=== PATIENT | female | born 1960 | race Caucasian/White ===

== ENCOUNTER 2023-04-14 07:07 | Outpatient (RCR) | payer OTHER, SELFPAY | END 2023-04-14 23:59 | disposition home or self-care (01) | LOC: RPT 07:07 | PROVIDERS: ATTENDING PHYSICIAN Physician Assistant Medical | DX: N39.41 Urge incontinence (principal); Z73.6 Limitation of activities due to disability; M62.81 Muscle weakness (generalized); Z98.890 Other specified postprocedural states | CPT/HCPCS: 97140; 97163; 97530 ==

== ENCOUNTER → 2023-04-15 13:00 | Outpatient (REF) | payer OTHER, SELFPAY | LOC: PAVMRI 13:00 | PROVIDERS: ATTENDING PHYSICIAN Nurse Practitioner Family; FAMILY PHYSICIAN Physician Assistant Medical; REFERRING PHYSICIAN Psychiatry & Neurology Neurology | DX: R90.82 White matter disease, unspecified (principal) | CPT/HCPCS: 72156; 72157; A9575 ==

== ENCOUNTER 2023-05-12 06:46 | Outpatient (RCR) | payer OTHER, SELFPAY | END 2023-05-12 23:59 | disposition home or self-care (01) | LOC: RPT 06:46 | PROVIDERS: ATTENDING PHYSICIAN Physician Assistant Medical | DX: N39.41 Urge incontinence (principal); Z73.6 Limitation of activities due to disability | CPT/HCPCS: 97014; 97110; 97112; 97140; 97530 ==

== ENCOUNTER 2023-06-11 06:43 | Outpatient (RCR) | payer OTHER, SELFPAY | END 2023-06-11 23:59 | disposition home or self-care (01) | LOC: RPT 06:43 | PROVIDERS: ATTENDING PHYSICIAN Physician Assistant Medical | DX: N39.41 Urge incontinence (principal); K59.00 Constipation, unspecified; M62.81 Muscle weakness (generalized); Z73.6 Limitation of activities due to disability | CPT/HCPCS: 97110; 97112; 97140; 97530 ==

== ENCOUNTER 2023-07-09 06:55 | Outpatient (RCR) | payer OTHER, SELFPAY | END 2023-07-09 23:59 | disposition home or self-care (01) | LOC: RPT 06:55 | PROVIDERS: ATTENDING PHYSICIAN Physician Assistant Medical | DX: N39.41 Urge incontinence (principal); K59.00 Constipation, unspecified; M62.81 Muscle weakness (generalized); Z73.6 Limitation of activities due to disability | CPT/HCPCS: 97110; 97112; 97140; 97530 ==

== ENCOUNTER 2023-08-14 17:29 | Outpatient (RCR) | payer OTHER, SELFPAY | END 2023-08-14 23:59 | disposition home or self-care (01) | LOC: RPT 17:29 | PROVIDERS: ATTENDING PHYSICIAN Physician Assistant Medical | DX: N39.41 Urge incontinence (principal); Z73.6 Limitation of activities due to disability; K59.00 Constipation, unspecified; M62.81 Muscle weakness (generalized) | CPT/HCPCS: 97014; 97112; 97530 ==

== ENCOUNTER → 2023-08-20 12:09 | Outpatient (REF) | payer OTHER, SELFPAY | LOC: WDC 12:09 | PROVIDERS: ATTENDING PHYSICIAN Physician Assistant Medical | DX: Z12.31 Encounter for screening mammogram for malignant neoplasm of breast (principal) | CPT/HCPCS: 77063; 77067 ==

== ENCOUNTER 2023-09-03 06:14 | Outpatient (RCR) | payer OTHER, SELFPAY | END 2023-09-03 23:59 | disposition home or self-care (01) | LOC: RPT 06:14 | PROVIDERS: ATTENDING PHYSICIAN Physician Assistant Medical | DX: N39.41 Urge incontinence (principal); K59.00 Constipation, unspecified; M62.81 Muscle weakness (generalized); Z73.6 Limitation of activities due to disability | CPT/HCPCS: 97140; 97530 ==

== ENCOUNTER → 2023-09-08 07:08 | Outpatient (REF) | payer OTHER, SELFPAY | LOC: RAD 07:08 | PROVIDERS: FAMILY PHYSICIAN Physician Assistant Medical | DX: R10.9 Unspecified abdominal pain (principal) | CPT/HCPCS: 74177; Q9967 ==

== ENCOUNTER → 2023-11-24 08:32 | Outpatient (REF) | payer OTHER, SELFPAY | LOC: RAD 08:32 | PROVIDERS: ATTENDING PHYSICIAN Surgery; FAMILY PHYSICIAN Physician Assistant Medical | DX: R10.9 Unspecified abdominal pain (principal); L76.82 Other postprocedural complications of skin and subcutaneous tissue; K63.89 Other specified diseases of intestine | CPT/HCPCS: 74250 ==

== ENCOUNTER 2024-02-17 18:52 | Emergency (ER) | payer OTHER, SELFPAY ==
[2024-02-17 18:59] VITALS: BP 163/101
[2024-02-17 19:25] LABS: % Basophils 0.5 % (0-2); % Eosinophils 5.2 % (0-6); % Immature Granulocytes 0.3 % (0-0.5); % Lymphocytes 31.3 % (20.5-51.1); % Monocytes 9.1 % (1.7-9.3); % Neutrophils 53.6 % (42.2-75.2); Absolute Eosinophils 0.3 10^3/uL (0-0.7); Absolute Monocytes 0.6 10^3/uL (0.1-0.6); Absolute Neutrophils 3.5 10^3/uL (1.4-6.5); Hematocrit 34.3 % (37.0-47.0); Hemoglobin 11.9 g/dL (12.0-16.0); Mean Corp Hgb Conc. 34.7 g/dL (33.0-37.0); Mean Corpuscular Hgb 32.2 pg (27.0-31.0); Mean Platelet Volume 9.4 fL (7.4-10.4); Nucleated Red Blood Cells % 0 %; Platelet Count 300 10^3/uL (130-400); Red Blood Cell Count 3.69 10^6/uL (4.20-5.40); White Blood Cell Count 6.5 10^3/uL (4.8-10.8)
[2024-02-17 19:34] LABS: APTT 29.1 Sec (23.4-35.0)
[2024-02-17 19:41] LABS: ALT (SGPT) 18 U/L (0-35); AST (SGOT) 28 U/L (14-36); Albumin 4.1 g/dl (3.5-5.0); Alkaline Phosphatase 48 U/L (38-126); Blood Urea Nitrogen 16 mg/dl (7-17); Calcium 9.6 mg/dl (8.4-10.2); Carbon Dioxide 26 mmol/L (22-30); Chloride 103 mmol/L (98-107); Glucose 110 mg/dl (70-99); Potassium 4.3 mmol/L (3.5-5.1); Sodium 141 mmol/L (135-145); Total Bilirubin 0.2 mg/dl (0.2-1.3); Total Protein 6.7 g/dl (6.3-8.2); eGFR > 60.00
[2024-02-17 19:48] LABS: Troponin I < 0.012 ng/ml
[2024-02-17 20:35] VITALS: BP 172/112; BP 172/113
[2024-02-17 20:36] VITALS: BP 184/113
[2024-02-17 20:37] VITALS: BMI 22.5
[2024-02-17 21:29] VITALS: BP 180/95
[2024-02-17 21:44] LABS: Lipase 164 U/L (23-300)
--- NOTE | 2024-02-17 21:45 | ED.GENMED ---
History of Present Illness
General
Chief Complaint: Chest Pain
Time Seen by Provider: 02/17/24 21:45
History of Present Illness
History of Present Illness:
TIME OF INITIAL ENCOUNTER: 10 PM
HPI: The patient presents due to intermittent chest discomfort over the past week or so. This is associated with some degree of shortness of breath but the main symptom is related to chest discomfort more so in the center and in the right mid
axillary line. She states that the pain comes from the back and feels that she twisted her back/strained her back. She did travel from [place] today. She has no exertional symptoms. She also briefly had an episode of left thigh discomfort
today as well. She has been taking ibuprofen without much relief. She also was taking Excedrin. She continues to state that she feels like the pain is coming from her intercostal muscles.
EXAM:
GENERAL: Well appearing in minimal if any distress
HEENT: Moist oral mucosa
CARDIOVASCULAR: No murmurs, normal heart rate, regular rhythm, mild anterior and right lateral chest wall tenderness
PULMONARY: No respiratory distress, breath sounds are clear and equal
ABDOMEN: Soft with no peritoneal signs, no tenderness
NEUROLOGIC: Excellent strength all extremities, no coordination deficits
PSYCHIATRIC: Appropriate mental status, normal insight and judgement
EXTREMITIES: Nontender, no edema, moves all extremities equally
SKIN: No rash, no lesions
NUMBER AND COMPLEXITY OF PROBLEMS ADDRESSED AT THE ENCOUNTER
� Chronic conditions affecting care: Sjogren's, thyroid disease, alopecia, celiac disease
� Acute Exacerbation and/or Progression of Chronic Illness: This is an acute problem
� Differential Diagnosis includes: Vital signs are not consistent with PE, musculoskeletal chest wall pain, ACS, anxiety
AMOUNT AND/OR COMPLEXITY OF DATA TO BE REVIEWED AND ANALYZED
� I performed an independent evaluation of and my interpretation is:
EKG: Sinus 79, normal axis, nonspecific ST abnormality
CT:
X-rays: Chest x-ray clear
Laboratory Studies: White count normal, hemoglobin 11.9, chemistries unremarkable, troponin less than 0.012, LFTs and lipase unremarkable
Other:
� Review of other/old records: I reviewed records, the patient had a colonoscopy for screening in 2020
� Clinical information was obtained by an independent historian: I spoke to partner at bedside
� Prescriptions/Medications Considered but not given: Considered/offer narcotic however the patient declines
� Further testing considered but not performed: Considered CTA however the patient has a negative D-dimer
RISK OF COMPLICATIONS AND/OR MORBIDITY OR MORTALITY OF PATIENT MANAGEMENT
� Social determinants of health affecting care: Lives at home
� Discussion with other providers:
� Escalation of care including admission/observation vs risk of discharge considered: The patient did have 400 mg of Motrin earlier in the day; we gave 600 mg of Motrin tonight. D-dimer reassuring, troponin negative despite a
week worth of symptoms.
ANY OTHER UPDATES:
10:45 PM: I reassessed patient. She feels improved after 600 mg of Motrin. She is to follow-up with nautical instrument mechanic. Repeat blood pressure into the 150s. This is the first day that she has had high blood pressure�will hold off on any
antihypertensive at this time.
Past History
Past History
ED Past Medical History: Hypothyroidism and Other (Sjogren's/celiac dz, alopecia, osteoporosis)
ED Past Surgical History: Gynecological (Endometrial ablation)
Social History
Tobacco: Non-smoker
Alcohol: None
Personal: Single
Living: alone
Employment: Employed
Family History
Family History: Negative Early CAD
Phy Exam
Physical Exam
Physical Exam:
See HPI
Scores
Heart Score for Chest Pain Patients
STEMI patient?: No
History: Slightly or Non-Suspicious
ECG: Nonspecific Repolarization
Age: >45 - <65 years
Risk Factors: 1 or 2 Risk Factors
Troponin: </= Normal Limit
Heart Score for Chest Pain Patients: 3
Heart Score Risk: 2.5% MACE over next 6 weeks
Course
Orders/Labs/Results
Orders:
Orders
02/17/24 18:52
ECG [Electrocardiogram (*1)] Urgent
Reason for Study: Chest Pain
02/17/24 18:53
EKG- Treatment ONCE
02/17/24 19:02
CR Chest - 2 Views Urgent
Comment:
Reason For Exam: pain
02/17/24 19:08
Complete Blood Count/With Diff Urgent
Comprehensive Metabolic Panel Urgent
D-Dimer Urgent
Comment: ADD ON
Lipase Urgent
Comment: ADD ON
PTT Urgent
Troponin I Urgent
02/17/24 21:11
Add On- LAB Urgent
Tests Added?: lipase
02/17/24 22:11
Add On- LAB Urgent
Tests Added?: ddimer
02/17/24 22:17
Ibuprofen [Motrin] 600 mg PO NOW STA
Abnormal Lab Results
02/17/24
19:08
RBC 3.69 L 10^6/uL
(4.20-5.40)
Hgb 11.9 L g/dL
(12.0-16.0)
Hct 34.3 L %
(37.0-47.0)
MCH 32.2 H pg
(27.0-31.0)
Glucose 110 H mg/dl
(70-99)
02/17/24 19:08
02/17/24 19:08
Vital Signs
Initial and Last Documented VS:
Initial Vital Signs
Temp Pulse Resp BP Pulse Ox
36.4 C 82 22 163/101 98
02/17/24 18:59 02/17/24 18:59 02/17/24 18:59 02/17/24 18:59 02/17/24 18:59
Last Documented Vital Signs
Temp Pulse Resp BP Pulse Ox
36.4 C 73 15 158/96 97
02/17/24 18:59 02/17/24 22:00 02/17/24 22:00 02/17/24 22:00 02/17/24 22:00
*Critical Care Note
Total Time (30-74mins, 75-104mins- exclusive of procedures): Not Applicable
ED Attending Note
-
Portions of this chart may have been created with voice recognition software.� Occasional wrong word or��sound alike� substitutions may have occurred due to the inherent limitations of voice recognition software.
Discharge Plan
Departure
Prescriptions:
No Action
multivitamin [Daily Multiple] 1 EACH tablet
1 ea PO DAILY
levothyroxine 50 MCG tablet
100 mcg PO BEEBE
levothyroxine 50 MCG tablet
50 mcg PO MOTUWETHFRSA
hydroxychloroquine [Plaquenil] 200 mg Tablet
200 mg PO DAILY
Referrals:
Mercedes Linder PA-C [Family Provider] -
Interventions
Interventions:
*Risk Screen - Suicide Last Done: 02/17/24 21:06
*General Assessment Last Done: 02/17/24 20:38
*Neglect/Abuse Screening Last Done: 02/17/24 20:39
ED- Fall Risk Assessment Last Done: 02/17/24 21:06
*ED COVID-19 Vaccine History Last Done: 02/17/24 20:38
ED- Cardiac Assessment Last Done: 02/17/24 21:06
Discharge Date and Time
Print Language: UPPER SORBIAN
[2024-02-17 22:00] VITALS: BP 158/96
[2024-02-17] MEDS: MOTRIN 600 MG PO (22:22)
[2024-02-17 22:26] LABS: D-Dimer < 0.27 ug/mlFEU (0.00-0.50)
[2024-02-17 22:52] VITALS: BP 149/102
== END 2024-02-17 23:05 | disposition home or self-care (01) ==
LOC: EMR 18:52
PROVIDERS: Emergency Medicine; EMERGENCY PHYSICIAN Emergency Medicine; FAMILY PHYSICIAN Physician Assistant Medical
DX: R07.89 Other chest pain (principal); E03.9 Hypothyroidism, unspecified
CPT/HCPCS: 99285; 71046; 80053; 83690; 84484; 85025; 85379; 85730; 93005

== ENCOUNTER → 2024-02-19 16:48 | Outpatient (REF) | payer OTHER, SELFPAY | LOC: RAD 16:48 | PROVIDERS: ATTENDING PHYSICIAN Physician Assistant Medical | DX: K59.09 Other constipation (principal) | CPT/HCPCS: 74019 ==

== ENCOUNTER → 2024-02-25 12:45 | Outpatient (REF) | payer OTHER, SELFPAY | LOC: HWRCS 12:45 | PROVIDERS: ATTENDING PHYSICIAN Internal Medicine; FAMILY PHYSICIAN Physician Assistant Medical | DX: R07.89 Other chest pain (principal); I73.00 Raynaud's syndrome without gangrene | CPT/HCPCS: 93306 ==

== ENCOUNTER 2024-03-08 12:45 | Inpatient (IN) | payer OTHER, SELFPAY ==
[2024-03-08] VITALS (15 sets, daily range): BP systolic 99–128; BP diastolic 70–86
--- NOTE | 2024-03-08 11:00 | ED.GENMED ---
History of Present Illness
General
Chief Complaint: Chest Pain
Time Seen by Provider: 03/08/24 10:52
History of Present Illness
History of Present Illness:
63-year-old female presents the emergency department for evaluation of chest pain and abnormal EKG during a stress test. Was referred in by cardiology for admission on heparin and eventual catheterization. Currently rates pain 2 out of 10, did
receive 1 sublingual nitroglycerin prior to arrival
Past History
Past History
ED Past Medical History: Hypothyroidism and Other (Sjogren's/celiac dz, alopecia, osteoporosis)
ED Past Surgical History: Gynecological (Endometrial ablation)
Social History
Tobacco: Non-smoker
Alcohol: None
Personal: Single
Living: alone
Employment: Employed
Family History
Family History: Negative Early CAD
Review of Systems
Review of Systems
Allergies reviewed?: Yes
All Other Systems: ROS reviewed and negative except as documented in HPI and ROS
Phy Exam
Physical Exam
Physical Exam:
GEN: Well appearing, NAD, WDWN
HEENT: Oral mucosa moist, no scleral icterus
Cardiac: Regular rate
Lung: No respiratory distress, no tachypnea
MSK: No gross deformity or injuries
Skin: Good color, no pallor or jaundice, no rashes
Neuro: AO x3, moves all extremities freely
Psych: Calm, cooperative
Scores
Heart Score for Chest Pain Patients
STEMI patient?: No
History: Highly Suspicious
ECG: Significant ST-Depression
Age: >45 - <65 years
Risk Factors: 1 or 2 Risk Factors
Troponin: </= Normal Limit
Heart Score for Chest Pain Patients: 6
Heart Score Risk: 20.3% MACE over next 6 weeks
Course
Orders/Labs/Results
Orders:
Orders
03/08/24 10:35
EKG [Electrocardiogram (*1)] Urgent
Reason for Study: Chest Pain
EKG- Treatment ONCE
03/08/24 11:00
Aspirin Chewable [Low Strength Aspirin] 324 mg PO NOW STA
Aspirin Chewable [Low Strength Aspirin] 324 mg PO NOW STA
Heparin 3,200 units IV NOW STA
Heparin 3,200 units IV NOW STA
Heparin 02121 Units/250 ml 25,000 units in 250 ml IV PER PROTOCOL
Weight to be used for heparin protocol in kilograms (kg):: 53.2
Protocol:: Cardiac Tx/Acute Coronary
PTT Goal Range to be used:: PTT 73 to 111 seconds
Order type:: Initial
INITIAL Infusion Dose (UNITS/KG/hr) & then follow protocol:: 12 units/kg/hr
Infusion Dose in UNITS/hr & then follow protocol (UNITS/hr):: 650
INFUSION RATE in mL/hr & then follow protocol (mL/hr):: 6.5
PTT less than or equal to 64 seconds:: Increase rate by 200 units/hr (+ 2 mL/hr)
PTT 64.1 to 72.9 seconds:: Increase rate by 100 units/hr (+ 1 mL/hr)
PTT 73 to 111 seconds:: Target Range. No change in rate.
PTT 111.1 to 130.9 seconds:: Decrease rate by 100 units/hr (- 1 mL/hr)
PTT 131 to 199.9 seconds:: HOLD for 1 hr. Then decrease rate by 200 units/hr (- 2 mL/hr)
PTT greater than or equal to 200 seconds:: HOLD for 2 hrs & Notify Provider. Then decrease by 200 units/hr (-
2 mL/hr)
Lab follow-up:: Each change, PTT q6h until 2 consecutive are therapeutic. Then PTT
daily.
Heparin 94877 Units/250 ml 25,000 units in 250 ml IV PER PROTOCOL
Weight to be used for heparin protocol in kilograms (kg):: 53.2
Protocol:: Cardiac Tx/Acute Coronary
PTT Goal Range to be used:: PTT 73 to 111 seconds
Order type:: Initial
INITIAL Infusion Dose (UNITS/KG/hr) & then follow protocol:: 15 units/kg/hr
Infusion Dose in UNITS/hr & then follow protocol (UNITS/hr):: 800
INFUSION RATE in mL/hr & then follow protocol (mL/hr):: 8
PTT less than or equal to 64 seconds:: Increase rate by 200 units/hr (+ 2 mL/hr)
PTT 64.1 to 72.9 seconds:: Increase rate by 100 units/hr (+ 1 mL/hr)
PTT 73 to 111 seconds:: Target Range. No change in rate.
PTT 111.1 to 130.9 seconds:: Decrease rate by 100 units/hr (- 1 mL/hr)
PTT 131 to 199.9 seconds:: HOLD for 1 hr. Then decrease rate by 200 units/hr (- 2 mL/hr)
PTT greater than or equal to 200 seconds:: HOLD for 2 hrs & Notify Provider. Then decrease by 200 units/hr (-
2 mL/hr)
Lab follow-up:: Each change, PTT q6h until 2 consecutive are therapeutic. Then PTT
daily.
Nitroglycerin Sublingual [Nitrostat (Sublingual)] 0.4 mg SL NOW STA
Pharmacy Request to Place See Dose Instructions IV DIRECTED
Pharmacy Request to Place See Dose Instructions IV DIRECTED
Pharmacy Request to Place See Dose Instructions PO NOW STA
Discontinue all Active Warfarin orders?: Not Applicable
Pharmacy Request to Place See Dose Instructions PO NOW STA
Discontinue all Active Warfarin orders?: Yes
Nursing to Place Non Medication Order As Directed
Physician Order: PTT 6 hours after initial start of Heparin infusion
Above order entered?: Yes
03/08/24 11:02
PRN Pain Medication Management As Directed
May give lesser potent ordered pain med per pt: Yes
preference::
Protocol:: Medication orders for pain may be administered in a
manner that supports deferring to patient preference
when the pt is:
- Requesting an ordered lesser potent pain medication.
Least to most potent pain medications are defined
as: acetaminophen < NSAID < tramadol < opioids
(morphine, oxycodone, hydromorphone).
- Requesting a lesser dose of the same medication IF
ORDERED.
- Requesting a less intrusive route of administration
if both routes are prescribed by the provider (PO <
IV).
03/08/24 11:03
Code Status As Directed
Resuscitation Status: Full Code
03/08/24 11:22
BNP [NT-proBNP] Urgent
Complete Blood Count/With Diff Urgent
Comprehensive Metabolic Panel Urgent
Glycohemoglobin (HgbA1c) Urgent
Lipid Profile [Cardiovascular Evaluation] Routine
PTT Urgent
Comment: Obtain baseline before beginning heparin infusion if not already collected
Troponin I Urgent
03/08/24 11:26
Add On- LAB Routine
Tests Added?: hgba1c
03/08/24 17:30
PTT Urgent
Abnormal Lab Results
03/08/24
11:22
WBC 4.4 L 10^3/uL
(4.8-10.8)
RBC 4.06 L 10^6/uL
(4.20-5.40)
MCHC 32.3 L g/dL
(33.0-37.0)
03/08/24 11:22
03/08/24 11:22
Vital Signs
Initial and Last Documented VS:
Initial Vital Signs
Temp Pulse Resp BP Pulse Ox
98.2 F 99 18 119/71 99
03/08/24 10:47 03/08/24 10:47 03/08/24 10:47 03/08/24 10:47 03/08/24 10:47
Last Documented Vital Signs
Temp Pulse Resp BP Pulse Ox
98.2 F 76 13 124/77 99
03/08/24 10:47 03/08/24 14:45 03/08/24 14:45 03/08/24 14:30 03/08/24 14:52
MDM/Problems Addressed
MDM/Problems Addressed:
Patient will be admitted to the cardiology service for urgent heart catheterization, symptoms resolved after second dose of sublingual nitroglycerin thus no indication for IV nitro. Heparin initiated in the ED and given a loading dose of
antiplatelets
*Critical Care Note
Total Time (30-74mins, 75-104mins- exclusive of procedures): Not Applicable
ED Attending Note
-
Portions of this chart may have been created with voice recognition software.� Occasional wrong word or��sound alike� substitutions may have occurred due to the inherent limitations of voice recognition software.
Discharge Plan
Departure
Patient Disposition: Admit
Date of Disposition: 03/08/24
Time of Disposition: 11:01
Admit to: IVU
Presentation/result/management discussed w/ accepting MD/DO: Cardiology- [place]
Discharge Problem:
ACS (acute coronary syndrome)
Interventions
Interventions:
*Risk Screen - Suicide Last Done: 03/08/24 10:47
*General Assessment Last Done: 03/08/24 10:47
*Neglect/Abuse Screening Last Done: 03/08/24 10:47
ED- Fall Risk Assessment Last Done: 03/08/24 11:04
*ED COVID-19 Vaccine History Last Done: 03/08/24 11:04
*Nursing Disposition Last Done: 03/08/24 12:22
ED- Cardiac Assessment Last Done: 03/08/24 11:04
Discharge Date and Time
Discharge Date/Time: 03/08/24 13:27
--- NOTE | 2024-03-08 11:09 | HPS.HSE ---
Addendum entered and electronically signed by Crow Fallon MD 03/08/24 12:25:
Patient seen and examined in collaboration with ROBOTICS TECHNICIAN; agree with below.
-63-year-old female with hyperlipidemia (untreated), Sjogren's, Raynaud's phenomenon, celiac disease, and hypothyroidism who presented for an elective ETT, which was abnormal ([address] depression in the inferolateral leads).
-The patient continued to experience chest pain which would not resolve; therefore, the patient was transferred to the ER.
-Given the patient's continued symptoms to and risk factors, the patient will undergo urgent cardiac catheterization today.
-Patient has been given full dose aspirin, sublingual nitroglycerin.
-The patient will be on heparin and placed on a nitroglycerin drip, if needed for continued chest pain.
-The patient's case was discussed with Interventional Cardiology.
-Will start statin.
-Keep NPO.
-The patient will be admitted to the Cardiology service.
Original Note:
Family Physician
-
Family Physician: Mercedes Linder PA-C
Primary automobile club travel counselor: Dr. Elijah Fu
Chief Complaint
-
Chest pressure
History of Present Illness
Jamia Menard is a 63-year-old female with hyperlipidemia, Sjogren's, Raynaud's phenomenon, celiac disease, and hypothyroidism who presented this morning for ETT. She saw Dr. Fu in the cardiology office earlier this month and endorsed
chest pain. When it started, she was evaluated in the emergency department. Her workup for ACS was negative and she was then referred for outpatient evaluation. She endorsed right sided back pain that had then radiated into her chest. She
completed ETT today. Initially, chest pressure of 1/10 in severity prior to testing. At the completion of her testing, EKG with [address] depression and inferolateral T wave inversion. She was having chest pressure of 5/10 in severity. This pain
did not radiate. She denies associated symptoms of diaphoresis, nausea, and dizziness. She was given 1 sublingual nitroglycerin. She was referred to the emergency department for evaluation.
Medical History
Past Medical History
Past Medical History: Reports Hypercholesterolemia, Hypothyroidism and Other (Sjogren's, Raynaud's phenomenon, bowel perforation, alopecia)
Past Surgical History: Reports Bowel Resection (With colostomy reversal) and Gynocological (Uterine ablation)
Social History
Tobacco: Non-smoker
Alcohol: Occasional
Drug: None
Personal: Single
Living: Alone
Family History
Family History: Not pertinent (Denies early CAD and SCD)
Allergies / Home Medications
Allergies reflects when Allergies were last updated in [facility].
Home Medications with original date entered in [facility]
Allergy/Medication List:
Allergies:
Sulfa
Levaquin caused rash
Flagyl caused rash
Dilaudid caused rash
Gluten
Home medication list
Levothyroxine 50 mcg p.o. daily
Lumigan 1 drop into affected eye every evening
Plaquenil 200 mg daily
Review of Systems
-
History Source: Patient
A 12 point ROS was completed and negative except as noted: Yes
Constitutional: Reports No Symptoms
EENT: Reports No Symptoms
Respiratory: Reports No Symptoms
Cardiac: Reports See HPI
Abdomen/GI: Reports No Symptoms
: Reports No Symptoms
Musculoskeletal: Reports No Symptoms
Skin: Reports No Symptoms
Neurological: Reports No Symptoms
Endocrine: Reports No Symptoms
Hematologic/Lymphatic: Reports No Symptoms
Psych: Reports No Symptoms
Physical Exam
Vital Signs
Vital Signs
Temp Pulse Resp BP Pulse Ox
98.2 F 99 18 119/71 99
03/08/24 10:47 03/08/24 10:47 03/08/24 10:47 03/08/24 10:47 03/08/24 10:47
Physical Exam
General: Well Developed, Well Nourished and No Apparent Distress
HEENT: NormoCephalic, Anicteric and Moist mucous membranes
Respiratory: Clear and Non Labored Respirations
Cardiac: S1/S2 and Regular Rhythm
Breast: Deferred by me
GI: Soft, Non Tender, Non Distended and Normal Bowel Sounds
Rectal: Deferred by Provider
Genito-urinary: No costovertebral tender
Musculoskeletal: No Clubbing, No Cyanosis and No Edema
Skin: Warm and Dry
Neuro: AO x 3
Hematologic/Lymphatic: No Lymphadenopathy
Psych: Calm
Data Reviewed
-
Diagnostic Radiology: Report Reviewed by me
Medical Tests (Nuc Med, Echo, EKG etc): Report Reviewed by me
Lab Data: Labs Reviewed by me
Old Records: Reviewed
Impression/Plan
-
IMPRESSION/PLAN: 63F with hyperlipidemia, Sjogren's, Raynaud's phenomenon, celiac disease, bowel perforation with colostomy reversal and hypothyroidism presented for ETT which was abnormal in addition to having symptoms of chest pressure.
Primary automobile club travel counselor: Dr. Fu
ACS
-ASA 324 mg chewable tablet x 1 now
-Heparin bolus with drip to follow
-Nitrostat x 1 sublingual now
-Fasting lipid panel pending, HgbA1c pending
Dyslipidemia
-Fasting lipid panel pending
-Most recent LDL 136 in the outpatient setting, she was borderline with her ASCVD risk at that time
Hypothyroidism, on levothyroxine
Sjogren's
Raynaud's phenomenon
Bowel perforation status post resection with colostomy reversal
Alopecia
[2024-03-08] MEDS: NITROSTAT (SUBLINGUAL) 0.4 MG SL (11:15)
[2024-03-08] MEDS: LOW STRENGTH ASPIRIN 324 MG PO (11:16)
[2024-03-08] MEDS: HEPARIN 3200 UNITS IV (11:25)
[2024-03-08] MEDS: HEPARIN 25000 UNITS/250 ML IV (11:27)
[2024-03-08 11:29] LABS: % Basophils 0.5 % (0-2); % Eosinophils 3.9 % (0-6); % Immature Granulocytes 0.2 % (0-0.5); % Lymphocytes 31.7 % (20.5-51.1); % Monocytes 9.1 % (1.7-9.3); % Neutrophils 54.6 % (42.2-75.2); Absolute Eosinophils 0.2 10^3/uL (0-0.7); Absolute Lymphocytes 1.4 10^3/uL (1.2-3.4); Absolute Monocytes 0.4 10^3/uL (0.1-0.6); Absolute Neutrophils 2.4 10^3/uL (1.4-6.5); Hematocrit 38.7 % (37.0-47.0); Hemoglobin 12.5 g/dL (12.0-16.0); Mean Corp Hgb Conc. 32.3 g/dL (33.0-37.0); Mean Corpuscular Hgb 30.8 pg (27.0-31.0); Mean Corpuscular Volume 95.3 fL (81.0-99.0); Mean Platelet Volume 9.2 fL (7.4-10.4); Nucleated Red Blood Cells % 0 %; Platelet Count 309 10^3/uL (130-400); Red Blood Cell Count 4.06 10^6/uL (4.20-5.40); Red Cell Dist. Width 12.1 % (11.5-14.5); White Blood Cell Count 4.4 10^3/uL (4.8-10.8)
[2024-03-08 11:43] LABS: ALT (SGPT) 17 U/L (0-35); AST (SGOT) 26 U/L (14-36); Albumin 4.5 g/dl (3.5-5.0); Alkaline Phosphatase 48 U/L (38-126); Blood Urea Nitrogen 16 mg/dl (7-17); Calcium 9.9 mg/dl (8.4-10.2); Carbon Dioxide 27 mmol/L (22-30); Chloride 101 mmol/L (98-107); Glucose 93 mg/dl (70-99); HDL Cholesterol 73 mg/dl; LDL Cholesterol, Calculated 102 mg/dl; Potassium 4.4 mmol/L (3.5-5.1); Sodium 136 mmol/L (135-145); Total Bilirubin 0.5 mg/dl (0.2-1.3); Total Cholesterol 197 mg/dl (50-199); Triglyceride 111 mg/dl (10-149); Very Low Density Lipoprotein 22 mg/dl (0-30); eGFR > 60.00
[2024-03-08 11:55] LABS: NT-proBNP 117 pg/ml; Troponin I < 0.012 ng/ml
[2024-03-08 13:06] LABS: Glycohemoglobin (HgbA1c) 5.6 % (4.0-5.6)
[2024-03-08] MEDS: TYLENOL 1000 MG PO (14:34)
--- NOTE | 2024-03-08 14:35 | ITS.CL.CATH ---
Enforcement Officer - Catheterization
Cardiac Catheterization
Procedure Report:
CARDIAC CATHETERIZATION REPORT
Date of Procedure: 03/08/2024
Referring: Crow Fallon M.D.
INDICATION: High risk, abnormal stress test.
PROCEDURE:
1. Left heart catheterization.
2. Coronary angiography.
3. Left ventriculography.
ACCESS:
6 Mexican right radial artery.
CATHETERS:
1. 5 Mexican JR4.
2. 5 Mexican JL 3.5.
3. 5 Mexican angled pigtail.
HEMODYNAMIC DATA
Weight (kg): 53.2
AO (s/d/x, mmHg): 114/76/92
LV (s/x mmHg): 114/8
LEFT VENTRICULOGRAPHY: Performed in an COLEMAN projection. Normal left ventricular size and systolic function with normal regional wall motion. Left ventricular ejection fraction estimated at 55%. There is no mitral valve regurgitation. There is no
aortic valve insufficiency. The aortic root and visualized ascending and descending aorta appear normal.
CORONARY ANGIOGRAPHY
Dominance: Right.
Left Main: Normal size, bifurcating vessel. There is no coronary artery disease.
LAD: Normal size vessel supplying the apex and giving rise to 2 diagonals. There is no coronary artery disease.
Ramus: Congenitally absent.
Circumflex: Large size, nondominant vessel that is essentially a single large marginal supplying the entire inferolateral wall. There is no coronary artery disease.
RCA: Large size, dominant vessel with a substantial posterolateral arcade. There is no coronary artery disease.
INTERVENTION(S)
None.
Closure Device: Vascular band.
Radiation (mGy): 178.33
DAP (cm2.Gy): 11.2905
Fluoroscopy time (minutes): 2.7
Sedation time (minutes): 30
CONCLUSIONS
1. Right dominant circulation with no epicardial coronary artery disease.
2. Normal filling pressures (LVEDP = 8 mmHg at 53.2 kg).
3. Given the symptoms combined with abnormal EKG response to exit exercise, I am highly suspicious for endothelial dysfunction/microvascular disease.
RECOMMENDATIONS:
1. Expectant management after cardiac catheterization via right radial approach.
2. Limited weight bearing on the right wrist for one week.
3. Start amlodipine 2.5 mg daily.
4. Stable for outpatient follow-up.
Copy to: Crow Fallon M.D., Mercedes Linder PA-C
Jann Brian DO, FACC, FACP
--- NOTE | 2024-03-08 16:01 | PTCARENOTE ---
[id number] removed r band and bleeding occurred immediately. pressure held for 15 min. pt still oozing . [facility] cesar called to bedside ,innoseal patch placed and r band replaced on wrist w approx 10 cc air. will wait 15 min and remove r band and
reasses at that time per [facility] editor [employer] founder.
== END 2024-03-08 16:39 | disposition home or self-care (01) | DRG 287 ==
LOC: CATH-IN 12:45
PROVIDERS: Internal Medicine Cardiovascular Disease; Physician Assistant; ADMITTING PHYSICIAN Internal Medicine; EMERGENCY PHYSICIAN Emergency Medicine
PROC: B2151ZZ Fluoroscopy of Left Heart using Low Osmolar Contrast (ICD-10-PCS; 2024-03-08)
PROC: B2111ZZ Fluoroscopy of Multiple Coronary Arteries using Low Osmolar Contrast (ICD-10-PCS; 2024-03-08)
PROC: 4A023N7 Measurement of Cardiac Sampling and Pressure, Left Heart, Percutaneous Approach (ICD-10-PCS; 2024-03-08)
DX: I24.9 Acute ischemic heart disease, unspecified (principal); R94.31 Abnormal electrocardiogram [ECG] [EKG]; E03.9 Hypothyroidism, unspecified; I73.00 Raynaud's syndrome without gangrene; K90.0 Celiac disease; E78.00 Pure hypercholesterolemia, unspecified; M35.00 Sjogren syndrome, unspecified; Z79.890 Hormone replacement therapy; M81.0 Age-related osteoporosis without current pathological fracture
CPT/HCPCS: 93017; 80053; 80061; 83036; 83880; 84484; 85025; 85730; 93005; 93458; 96374; 99284; C1894; Q9967

== ENCOUNTER 2024-07-28 06:18 | Day surgery (SDC) | payer OTHER, SELFPAY | END 2024-07-28 11:56 | disposition home or self-care (01) | LOC: GI 06:18 | PROVIDERS: ATTENDING PHYSICIAN Internal Medicine; FAMILY PHYSICIAN Physician Assistant Medical | DX: R12 Heartburn (principal); R07.9 Chest pain, unspecified; K44.9 Diaphragmatic hernia without obstruction or gangrene; K22.2 Esophageal obstruction; K31.89 Other diseases of stomach and duodenum; K29.60 Other gastritis without bleeding; I89.0 Lymphedema, not elsewhere classified | CPT/HCPCS: 43239; 88305; 88342 ==

== ENCOUNTER → 2024-09-30 16:32 | Outpatient (REF) | payer OTHER, SELFPAY | LOC: WDC 16:32 | PROVIDERS: ATTENDING PHYSICIAN Physician Assistant Medical | DX: Z12.31 Encounter for screening mammogram for malignant neoplasm of breast (principal) | CPT/HCPCS: 77063; 77067 ==

== ENCOUNTER → 2025-01-17 07:47 | Outpatient (REF) | payer OTHER, SELFPAY | LOC: RAD 07:47 | PROVIDERS: ATTENDING PHYSICIAN Internal Medicine Rheumatology; FAMILY PHYSICIAN Physician Assistant Medical | DX: M81.0 Age-related osteoporosis without current pathological fracture (principal) | CPT/HCPCS: 77080 ==